=== PATIENT | male | born 1955 | race Caucasian/White ===

== ENCOUNTER 2020-11-28 21:42 | Emergency (ER) | payer OTHER ==
[2020-11-28 21:46] VITALS: BP 156/81; PULSE 77; TEMP 98; BMI 24.3
== END 2020-11-29 03:30 | disposition home or self-care (01) ==
LOC: JER 21:42
DX: S82.865A Nondisplaced Maisonneuve's fracture of left leg, initial encounter for closed fracture (principal); W17.89XA Other fall from one level to another, initial encounter
CPT/HCPCS: 73590-TC-LT-FY; 73610-TC-LT-FY; 73630-TC-LT; 73700-TC-RT; 99285-25

== ENCOUNTER 2020-12-10 04:22 | Day surgery (SDC) | payer OTHER ==
[2020-12-08 10:31] VITALS: BMI 23.6
[2020-12-10] MEDS ORDERED: DEXMEDETOMIDINE HCL 200 MCG/2 ML IVPB ONE (06:59)
[2020-12-10] MEDS ORDERED: ACETAMINOPHEN INJECTION 100 ML IVPB ONE (06:59)
[2020-12-10] MEDS ORDERED: BUPIVACAINE HCL/PF 0.5% (5MG/ML) 10 ML VIAL ONE (07:59)
[2020-12-10] MEDS ORDERED: DEXAMETHASONE SOD PHOSPHATE 10 MG/1 ML VIAL ONE (07:59)
[2020-12-10] MEDS ORDERED: MIDAZOLAM HCL 2 MG/2 ML SINGLE DOSE VIAL ONE ×2 (08:48)
[2020-12-10] MEDS ORDERED: KETAMINE HCL 200 MG/20 ML VIAL ONE (09:36)
[2020-12-10] MEDS ORDERED: CLINDAMYCIN 900 MG PREMIX BAG IVPB ONE ×2 (10:15)
[2020-12-10 16:34] VITALS: BP 116/60; PULSE 77; TEMP 98
== END 2020-12-10 16:08 | disposition home or self-care (01) ==
LOC: JASU-SURG 04:22
PROVIDERS: ATTEND Podiatrist Foot & Ankle Surgery
PROC: 0QSH04Z Reposition Left Tibia with Internal Fixation Device, Open Approach (ICD-10-PCS; 2020-12-10)
PROC: 0QSH04Z Reposition Left Tibia with Internal Fixation Device, Open Approach (ICD-10-PCS; 2020-12-10)
PROC: 0QSK04Z Reposition Left Fibula with Internal Fixation Device, Open Approach (ICD-10-PCS; principal; 2020-12-10 10:17)
DX: S82.852A Displaced trimalleolar fracture of left lower leg, initial encounter for closed fracture (principal); X58.XXXA Exposure to other specified factors, initial encounter; Y93.9 Activity, unspecified; Y92.9 Unspecified place or not applicable; Y99.9 Unspecified external cause status
CPT/HCPCS: 27822; C1713; 73610-TC-LT-FY; 73630-TC-LT; 76000-TC-FY; J0131; J1100